=== PATIENT | male | born 1960 | race Two or more races ===

== ENCOUNTER 2019-01-07 07:07 | Inpatient (IN) | payer MEDICAID | END 2019-01-10 20:58 | disposition left against medical advice (07) | LOC: TELE-CENTR 21:49 → ER 07:07 → TELE 07:08 → TELE-CENTR 21:46 | DX: R07.9 Chest pain, unspecified (principal); I71.2 Thoracic aortic aneurysm, without rupture; I10 Essential (primary) hypertension; I08.0 Rheumatic disorders of both mitral and aortic valves; R00.1 Bradycardia, unspecified; F15.90 Other stimulant use, unspecified, uncomplicated; R91.1 Solitary pulmonary nodule ==

== ENCOUNTER 2019-06-15 11:09 | Emergency (ER) | payer MEDICAID ==
[~2019-06-15] VITALS: Ht 175.3 cm; Wt 90.7 kg
[~2019-06-15 11:09] MED LIST: MET25T PO
[2019-06-15 12:20] LABS: Albumin 3.8 g/dL (3.4-5.0); Calcium 8.9 mg/dL (8.5-10.1); Potassium 3.4 mmol/L (3.5-5.1)
[2019-06-15 12:25] LABS: BUN/Creatinine Ratio 12.1; Bilirubin, Total 0.5 mg/dL (0.2-1.0); Total Protein 7.1 g/dL (6.4-8.2)
[2019-06-15 12:27] LABS: Hematocrit 42.9 % (41.0-53.0); Hemoglobin 14.9 g/dL (13.5-17.5); Mean Corpuscular Hemoglobin 31.5 pg (28.0-32.0); Mean Corpuscular Hgb Conc. 34.7 g/dL (32.0-36.0); Mean Corpuscular Volume 90.8 fL (80.0-100.0); Platelet Count (auto) 248 10^3/uL (140-450); Red Blood Cells 4.73 10^6/uL (4.5-5.90); Red Cell Distribution Width 13.6 % (11.8-14.3)
[2019-06-15 12:40] LABS: Basophils % (manual) 0 (0.0-2.0); Blast Cells 0; Metamyelocytes % 0; Myelocytes % 0; Promyelocytes % 0; Reactive Lymphocytes 0
[2019-06-15 13:00] LABS: Band Neutrophils % (manual) 3; Eosinophils % (manual) 3 (0-7); Lymphocytes % (manual) 20 (10.0-50.0); Monocytes % (manual) 12 (0-12)
[2019-06-15 13:11] LABS: INR 1.01 (0.9-1.15); Partial Thromboplastin Time 24.2 sec (23.64-32.05)
[2019-06-15] MEDS ORDERED: ASPirin-EC 81 mg tab PO ONE (14:00)
[2019-06-15 14:10] VITALS: BP 164/75
== END 2019-06-15 14:43 | disposition short-term general hospital (02) ==
LOC: ER 11:26
DX: I63.9 Cerebral infarction, unspecified (principal); R42 Dizziness and giddiness; J44.9 Chronic obstructive pulmonary disease, unspecified; E78.5 Hyperlipidemia, unspecified; I10 Essential (primary) hypertension; Z87.891 Personal history of nicotine dependence
CPT/HCPCS: 36415; 70450; 71045; 80053; 83735; 83880; 84484; 85007; 85027; 85610; 85730; 93005; 99291